=== PATIENT | female | born 1955 | race Caucasian/White ===

== ENCOUNTER 2021-02-06 13:30 | Emergency (ER) | payer OTHER, MEDICAID ==
[~2021-02-06] VITALS: Ht 160 cm; Wt 127.0 kg
[2021-02-06 13:45] VITALS: BP_SYST 133
[2021-02-06] MEDS ORDERED: LIDOCAINE PATCH 5% 1 EA TP ONE (14:45)
[2021-02-06 16:08] LABS: BILIRUBIN,URINE NEGATIVE (NEGATIVE); BLOOD, URINE NEGATIVE (NEGATIVE); COLOR,URINE YELLOW (YELLOW); GLUCOSE,URINE NEGATIVE (NEGATIVE); KETONES,URINE NEGATIVE (NEGATIVE); LEUKOCYTE ESTERASE ,URINE NEGATIVE (NEGATIVE); NITRITE, URINE NEGATIVE (NEGATIVE); PROTEIN URINE NEGATIVE (NEGATIVE); UROBILINOGEN,URINE 0.2 (0.2-1.0)
[2021-02-06 16:23] LABS: CLARITY/URINE SLIGHTLY HAZY (CLEAR)
[2021-02-06] MEDS ORDERED: LIDO1ADH77 TP (16:43)
[2021-02-06] MEDS ORDERED: METH-634 PO (16:43)
[2021-02-06 16:54] VITALS: BP_SYST 133
== END 2021-02-06 16:54 | disposition home or self-care (01) ==
LOC: SED 13:30
DX: M54.50 Low back pain, unspecified (principal); Z88.5 Allergy status to narcotic agent; Z79.899 Other long term (current) drug therapy
CPT/HCPCS: 81003; 82962; 99283